=== PATIENT | male | born 1985 | race Caucasian/White ===

== ENCOUNTER → 2018-06-24 | Outpatient (REF) ==
--- NOTE | 2018-06-25 02:22 | REP ---
Clinical: Pain and disability. Technique: AP, lateral, bilateral oblique views of the left hand. Findings: Evidence for old healed fractures involving the head of the fifth metacarpal bone with mild chronic volar angulation as well as old fracture with open reduction and fixation involving the third proximal phalanx. Mild degenerative changes at the distal interphalangeal joints include minimal joint space narrowing. Subchondral sclerosis and joint space narrowing also noted at the radiocarpal joint. Remainder examination appears relatively normal. Impression: Post traumatic and mild degenerative changes. Electronically Signed by Randy Esquivel MD 06/25/2018 02:13 A
== END ==
LOC: M SMT 10:10
PROVIDERS: ATTEND Internal Medicine
DX: Z02.71 Encounter for disability determination (principal)

== ENCOUNTER → 2024-08-31 | Outpatient (REF) | LOC: M RAD 12:41 | PROVIDERS: ATTEND Internal Medicine | DX: M50.30 Other cervical disc degeneration, unspecified cervical region (principal) ==